=== PATIENT | female | born 1935 | race Caucasian/White ===

== ENCOUNTER 2020-10-02 08:47 | Inpatient (IN) | payer BC ==
[~2020-10-02] VITALS: Ht 154.9 cm; Wt 62.3 kg
[2020-10-02 09:36] LABS: Basophils # (auto) 0 10 ^3/uL (0-0.2); Basophils % (auto) 0.5 % (0.0-2.0); Eosinophils # (auto) 0.1 10 ^3/uL (0-0.8); Eosinophils % (auto) 0.8 % (0.0-7.0); Hematocrit 43.2 % (36.0-46.0); Hemoglobin 14.9 g/dL (12.2-16.2); Lymphocytes # (auto) 1.1 10 ^3/uL (0.4-5.4); Lymphocytes % (auto) 12.6 % (10.0-50.0); Mean Corpuscular Hgb Conc. 34.5 g/dL (32.0-36.0); Mean Corpuscular Volume 98.5 fL (80.0-100.0); Monocytes # (auto) 0.5 10 ^3/uL (0-1.3); Monocytes % (auto) 5.5 % (0.0-12.0); Neutrophils # (auto) 7.3 10 ^3/uL (1.6-8.6); Neutrophils % (auto) 80.6 % (37.0-80.0); Red Blood Cells 4.38 10^6/uL (4.0-5.20); Red Cell Distribution Width 12.6 % (11.8-14.3); White Blood Cell 9.1 10^3/uL (4.4-10.8)
[2020-10-02 09:55] LABS: Albumin 3.7 g/dL (3.4-5.0); Anion Gap 8 (5-15); Blood Urea Nitrogen 14 mg/dL (7-18); Calcium 8.6 mg/dL (8.5-10.1); Carbon Dioxide 24 mmol/L (21-32); Chloride 106 mmol/L (98-107); Glucose 194 mg/dL (74-106); Potassium 3.6 mmol/L (3.5-5.1); Sodium 138 mmol/L (136-145)
[2020-10-02 10:01] LABS: Alanine Aminotransferase 17 U/L (13-56); Alkaline Phosphatase 58 U/L (45-117); Aspartate Aminotransferase 14 U/L (15-37); BUN/Creatinine Ratio 23.3; Bilirubin, Total 0.7 mg/dL (0.2-1.0); GFR African American 122 mL/min; GFR Non-African American 101 mL/min
[2020-10-02 14:34] LABS: Urine Bacteria FEW /hpf (None Seen); Urine Blood Negative /uL (Negative); Urine Specific Gravity 1.015 (1.001-1.035); Urine WBC 12 /hpf (0 - 5)
[2020-10-02] MEDS ORDERED: ONDANSETRON HCL 4 MG/2 ML VIAL IV PRN (14:45)
[2020-10-02] MEDS ORDERED: NITROGLYCERIN 0.4 MG SL TAB SL PRN (14:45)
[2020-10-02] MEDS ORDERED: MORPHINE SULFATE INJECTION 2 MG/ML SYRG IV PRN (14:45)
[2020-10-02] MEDS ORDERED: cloNIDine HCL 0.1 MG TAB PO PRN (14:45)
[2020-10-02] MEDS ORDERED: DEXTROSE (50%) 50ML SYRG IV PRN (14:45)
[2020-10-02] MEDS ORDERED: SODIUM CHLORIDE 0.9% 1,000 ML IV ONE (14:45)
[2020-10-02] MEDS: InsuLIN REG 1unit/0.01ml Soln (100units/ml) SC SCH ×3 (17:00→21:59)
[2020-10-02] MEDS: ACCU-CHEK COMFORT CURVE STRIP VI SCH ×2 (17:13→21:58)
[2020-10-02] MEDS ORDERED: cefTRIAXone 1GM/50ML D5W 50 ML IV ONE (17:30)
[2020-10-02 18:46] VITALS: BP 140/83
[2020-10-02] MEDS ORDERED: GLIP5TAB12 PO (19:16)
[2020-10-02] MEDS ORDERED: CLOP75TA28 PO (19:16)
[2020-10-02] MEDS ORDERED: CARV3.1240 PO (19:16)
[2020-10-02] MEDS ORDERED: SITA100T7 PO (19:16)
[2020-10-02] MEDS ORDERED: SIMV-8 PO (19:16)
[2020-10-02] MEDS ORDERED: FURO20TA3 PO (19:16)
[2020-10-02] MEDS ORDERED: LOSA25TA38 PO (19:16)
[2020-10-02 20:00] VITALS: BP 115/61
[2020-10-02 22:00] VITALS: BP 115/61
[2020-10-03] MEDS: ACETAMINOPHEN 325 MG TAB PO PRN ×2 (02:04→14:35)
[2020-10-03 05:00] VITALS: BP 141/58
[2020-10-03] MEDS: ACCU-CHEK COMFORT CURVE STRIP VI SCH ×4 (06:06→22:34)
[2020-10-03] MEDS: InsuLIN REG 1unit/0.01ml Soln (100units/ml) SC SCH ×4 (06:06→22:00)
[2020-10-03 08:00] VITALS: BP 139/83
[2020-10-03 09:00] VITALS: BP 139/83
[2020-10-03] MEDS ORDERED: CLOPIDOGREL BISULFATE 75 MG TAB PO ONE (10:45)
[2020-10-03] MEDS ORDERED: LOSARTAN POTASSIUM 25 MG TAB PO ONE (10:45)
[2020-10-03] MEDS ORDERED: FUROSEMIDE 20 MG TAB PO ONE (10:45)
[2020-10-03] MEDS ORDERED: MECLIZINE HCL 25 MG TAB PO ONE (10:45)
[2020-10-03] MEDS ORDERED: glipiZIDE 5 MG TAB PO ONE (10:45)
[2020-10-03] MEDS: ASPirin-EC 81 mg tab PO SCH (11:15)
[2020-10-03] MEDS: cefTRIAXone 1GM/50ML D5W 50 ML IV SCH (11:15)
[2020-10-03 13:00] VITALS: BP 144/85
[2020-10-03 17:00] VITALS: BP 158/83
[2020-10-03] MEDS: ZOCOR 20 MG PO SCH ×2 (18:00→18:07)
[2020-10-03] MEDS ORDERED: LORazepam 2MG/ML-1ML VIAL IV PRN (18:00)
[2020-10-03 22:00] VITALS: BP 144/70
[2020-10-03] MEDS: glipiZIDE 5 MG TAB PO SCH (22:33)
[2020-10-03] MEDS: CARVEDILOL 3.125 MG TAB PO SCH (22:33)
[2020-10-03] MEDS: MECLIZINE HCL 25 MG TAB PO SCH (22:33)
[2020-10-04 05:00] VITALS: BP 142/75
[2020-10-04] MEDS: ACCU-CHEK COMFORT CURVE STRIP VI SCH ×3 (06:11→17:00)
[2020-10-04] MEDS: InsuLIN REG 1unit/0.01ml Soln (100units/ml) SC SCH ×3 (06:11→17:00)
[2020-10-04 08:00] VITALS: BP 154/72
[2020-10-04 08:47] VITALS: BP 154/72
[2020-10-04] MEDS: cefTRIAXone 1GM/50ML D5W 50 ML IV SCH (09:00)
[2020-10-04] MEDS: glipiZIDE 5 MG TAB PO SCH (09:46)
[2020-10-04] MEDS: MECLIZINE HCL 25 MG TAB PO SCH (09:47)
[2020-10-04] MEDS: CARVEDILOL 3.125 MG TAB PO SCH (09:47)
[2020-10-04] MEDS: ASPirin-EC 81 mg tab PO SCH (09:49)
[2020-10-04] MEDS ORDERED: LOSARTAN POTASSIUM 25 MG TAB PO SCH (10:00)
[2020-10-04] MEDS ORDERED: FUROSEMIDE 20 MG TAB PO SCH (10:00)
[2020-10-04] MEDS ORDERED: CLOPIDOGREL BISULFATE 75 MG TAB PO SCH (10:00)
[2020-10-04] MEDS ORDERED: CIPR-173 PO (11:48)
[2020-10-04] MEDS ORDERED: MECL25TA18 PO (11:48)
[2020-10-04 14:10] VITALS: BP 140/73
[2020-10-04 14:57] VITALS: BP 140/73
[2020-10-04 17:00] VITALS: BP 153/80
[2020-10-04] MEDS: ZOCOR 20 MG PO SCH (18:00)
== END 2020-10-04 20:53 | disposition home health service (06) | DRG 65 ==
LOC: ER 08:47 → TELE 14:43 → TELE-CENTR 17:42
PROVIDERS: ADMIT Hospitalist; ATTEND Hospitalist
DX: I63.81 Other cerebral infarction due to occlusion or stenosis of small artery (principal); N39.0 Urinary tract infection, site not specified; H81.10 Benign paroxysmal vertigo, unspecified ear; E11.9 Type 2 diabetes mellitus without complications; Z20.822 Contact with and (suspected) exposure to COVID-19; F17.200 Nicotine dependence, unspecified, uncomplicated; H91.90 Unspecified hearing loss, unspecified ear; I10 Essential (primary) hypertension; I25.10 Atherosclerotic heart disease of native coronary artery without angina pectoris; I25.2 Old myocardial infarction; Z82.49 Family history of ischemic heart disease and other diseases of the circulatory system; Z83.3 Family history of diabetes mellitus; Z95.5 Presence of coronary angioplasty implant and graft; W18.39XA Other fall on same level, initial encounter; Y93.89 Activity, other specified; Y92.098 Other place in other non-institutional residence as the place of occurrence of the external cause; Y99.8 Other external cause status
CPT/HCPCS: 36415; 70450; 70551; 71045; 80053; 81001; 82962; 84484; 85025; 87426; 93005; 93306; 95819; 96361; 96374; 99291; G0378; J0696; J1815

== ENCOUNTER 2023-03-30 00:19 | Inpatient (IN) | payer BC, MEDICAID ==
[~2023-03-30] VITALS: Ht 157.5 cm; Wt 57.4 kg
[~2023-03-30 00:19] MED LIST: CARV3.1240 PO; CIPR-173 PO; CLOP75TA28 PO; FURO20TA3 PO; GLIP5TAB12 PO; LOSA25TA15 PO; MECL1TAB32 PO; SIMV20TA20 PO; SITA100T7 PO
[2023-03-30 01:10] LABS: Basophils # (auto) 0.1 10 ^3/uL (0-0.2); Basophils % (auto) 0.7 % (0.0-2.0); Eosinophils # (auto) 0.1 10 ^3/uL (0-0.8); Eosinophils % (auto) 0.9 % (0.0-7.0); Hematocrit 42.6 % (36.0-46.0); Hemoglobin 14.5 g/dL (12.2-16.2); Lymphocytes % (auto) 11.6 % (10.0-50.0); Mean Corpuscular Hemoglobin 33.9 pg (28.0-32.0); Mean Corpuscular Volume 99.7 fL (80.0-100.0); Monocytes # (auto) 0.5 10 ^3/uL (0-1.3); Monocytes % (auto) 5.6 % (0.0-12.0); Neutrophils % (auto) 81.2 % (37.0-80.0); Red Blood Cells 4.27 10^6/uL (4.0-5.20); Red Cell Distribution Width 12.7 % (11.8-14.3); White Blood Cell 8.7 10^3/uL (4.4-10.8)
[2023-03-30 01:18] VITALS: PULSE 64; RESP 22; O2SAT 99
[2023-03-30 01:29] LABS: Alanine Aminotransferase 14 U/L (7-40); Albumin 4.5 g/dL (3.2-4.8); Alkaline Phosphatase 74 U/L (46-116); Anion Gap 8 (5-15); Aspartate Aminotransferase 21 U/L (13-40); BUN/Creatinine Ratio 14.3 (10.0-20.0); Blood Urea Nitrogen 10 mg/dL (9-23); Calcium 9.6 mg/dL (8.7-10.4); Carbon Dioxide 25 mmol/L (20-30); Chloride 105 mmol/L (98-107); Glucose 190 mg/dL (74-106); Potassium 3.8 mmol/L (3.5-5.1); Sodium 138 mmol/L (136-145)
[2023-03-30 01:30] LABS: Bilirubin, Total 0.9 mg/dL (0.2-1.0); Total Protein 7.1 g/dL (5.7-8.2)
[2023-03-30 03:51] LABS: Urine Bacteria MANY /hpf (None Seen); Urine Blood 1+ /uL (Negative); Urine Clarity CLOUDY (Clear); Urine Color Yellow (Yellow); Urine Protein, UAD Negative (Negative); Urine Specific Gravity 1.012 (1.001-1.035); Urine Urobilinogen Normal (Negative); Urine WBC 141 /hpf (0 - 5); Urine WBC Clumps PRESENT /hpf (None Seen)
[2023-03-30] MEDS ORDERED: ASPirin 81 mg TAB PO ONE (04:15)
[2023-03-30] MEDS ORDERED: cefTRIAXone 1GM/50ML D5W 50 ML IV SCH (04:15)
[2023-03-30] MEDS ORDERED: IOHEXOL 350 MG/ML 100ML IJ ONE (05:06)
[2023-03-30 05:31] LABS: INR 1.16 (0.9-1.15); Partial Thromboplastin Time 24.6 SEC (24.5-34.5); Prothrombin Time 12.1 sec (9.3-11.8)
[2023-03-30] MEDS ORDERED: DEXTROSE (50%) 50ML SYRG IV PRN (06:30)
[2023-03-30] MEDS ORDERED: DOCUSATE SOD 100 MG CAP PO PRN (06:30)
[2023-03-30] MEDS ORDERED: ACETAMINOPHEN 325 MG TAB PO PRN (06:30)
[2023-03-30] MEDS ORDERED: ONDANSETRON HCL 4 MG/2 ML VIAL IV PRN (06:30)
[2023-03-30] MEDS ORDERED: NITROGLYCERIN 0.4 MG SL TAB SL PRN (06:30)
[2023-03-30] MEDS ORDERED: MORPHINE SULFATE INJ 2 MG/ml SYRG IV PRN (06:30)
[2023-03-30] MEDS: InsuLIN REG 1unit/0.01ml Soln (100units/ml) SC SCH ×4 (07:00→22:26)
[2023-03-30] MEDS: ACCU-CHEK COMFORT CURVE STRIP VI SCH ×4 (08:16→22:17)
[2023-03-30] MEDS: ASPirin 81 mg TAB PO SCH (10:08)
[2023-03-30] MEDS: CLOPIDOGREL BISULFATE 75 MG TAB PO SCH (10:08)
[2023-03-30] MEDS: ATORVASTATIN 20 MG TAB PO SCH (10:08)
[2023-03-30] MEDS: MECLIZINE HCL 25 MG TAB PO PRN (13:52)
[2023-03-30 19:48] VITALS: PULSE 88; RESP 23; O2SAT 98
[2023-03-30] MEDS: PANTOPRAZOLE 40 MG TAB PO SCH (19:58)
[2023-03-30 21:24] VITALS: BP 112/61; PULSE 76; RESP 18; TEMP 97.9; O2SAT 98
[2023-03-30] MEDS: CARVEDILOL 3.125 MG TAB PO SCH (22:30)
[2023-03-30 23:41] VITALS: PULSE 70
[2023-03-31] VITALS (7 sets, daily range): BP systolic 118–133; BP diastolic 50–74; PULSE 70–85; RESP 14–19; TEMP 97.8–98.7; O2SAT 97–100
[2023-03-31] MEDS: ACCU-CHEK COMFORT CURVE STRIP VI SCH ×4 (06:17→21:50)
[2023-03-31] MEDS: InsuLIN REG 1unit/0.01ml Soln (100units/ml) SC SCH ×4 (06:20→21:42)
[2023-03-31 06:33] LABS: Basophils # (auto) 0 10 ^3/uL (0-0.2)
[2023-03-31 07:18] LABS: Basophils % (auto) 0.6 % (0.0-2.0); Eosinophils # (auto) 0.1 10 ^3/uL (0-0.8); Eosinophils % (auto) 1.5 % (0.0-7.0); Hematocrit 41.2 % (36.0-46.0); Hemoglobin 13.3 g/dL (12.2-16.2); Lymphocytes # (auto) 2.1 10 ^3/uL (0.4-5.4); Lymphocytes % (auto) 38.4 % (10.0-50.0); Mean Corpuscular Hemoglobin 33.7 pg (28.0-32.0); Mean Corpuscular Hgb Conc. 32.3 g/dL (32.0-36.0); Mean Corpuscular Volume 104.5 fL (80.0-100.0); Monocytes # (auto) 0.6 10 ^3/uL (0-1.3); Neutrophils # (auto) 2.6 10 ^3/uL (1.6-8.6); Neutrophils % (auto) 47.5 % (37.0-80.0); Nucleated Red Blood Cells % 0.3 %; Red Blood Cells 3.94 10^6/uL (4.0-5.20); Red Cell Distribution Width 13.4 % (11.8-14.3); White Blood Cell 5.4 10^3/uL (4.4-10.8)
[2023-03-31 07:59] LABS: Chloride 105 mmol/L (98-107); Potassium 3.6 mmol/L (3.5-5.1); Sodium 140 mmol/L (136-145)
[2023-03-31 08:00] LABS: Calcium 9.1 mg/dL (8.5-10.1)
[2023-03-31 08:05] LABS: BUN/Creatinine Ratio 17.1 (10.0-20.0); Blood Urea Nitrogen 13 mg/dL (9-23); Glucose 100 mg/dL (74-106); Triglycerides 122 mg/dL (< 150)
[2023-03-31 08:06] LABS: LDL Cholesterol 51 mg/dL (< 100)
[2023-03-31 08:07] LABS: Cholesterol 103 mg/dL (< 200); HDL Cholesterol 34 mg/dL (40-59)
[2023-03-31] MEDS: ASPirin 81 mg TAB PO SCH (08:41)
[2023-03-31] MEDS: ATORVASTATIN 20 MG TAB PO SCH (08:41)
[2023-03-31] MEDS: PANTOPRAZOLE 40 MG TAB PO SCH (08:41)
[2023-03-31] MEDS: MECLIZINE HCL 25 MG TAB PO PRN (08:41)
[2023-03-31] MEDS: CLOPIDOGREL BISULFATE 75 MG TAB PO SCH (08:41)
[2023-03-31] MEDS: CARVEDILOL 3.125 MG TAB PO SCH ×2 (08:55→21:43)
[2023-03-31] MEDS: cefTRIAXone 1GM/50ML D5W 50 ML IV SCH (09:25)
[2023-03-31 09:49] LABS: Anion Gap 9 (5-15); Carbon Dioxide 26 mmol/L (20-30)
[2023-03-31] MEDS: MECLIZINE HCL 25 MG TAB PO SCH ×2 (12:47→21:44)
[2023-04-01] VITALS (7 sets, daily range): BP systolic 101–124; BP diastolic 51–73; PULSE 64–88; RESP 15–18; TEMP 97.4–99.4; O2SAT 96–100
[2023-04-01] MEDS: InsuLIN REG 1unit/0.01ml Soln (100units/ml) SC SCH ×4 (06:03→21:54)
[2023-04-01] MEDS: MECLIZINE HCL 25 MG TAB PO SCH ×3 (06:08→21:53)
[2023-04-01] MEDS: ACCU-CHEK COMFORT CURVE STRIP VI SCH ×4 (06:41→22:00)
[2023-04-01] MEDS: cefTRIAXone 1GM/50ML D5W 50 ML IV SCH (09:59)
[2023-04-01] MEDS: ATORVASTATIN 20 MG TAB PO SCH (10:00)
[2023-04-01] MEDS: CARVEDILOL 3.125 MG TAB PO SCH ×2 (10:00→21:53)
[2023-04-01] MEDS: PANTOPRAZOLE 40 MG TAB PO SCH (10:01)
[2023-04-01] MEDS: ENOXAPARIN SOD 40 MG/0.4 ML SYRINGE SC SCH (10:01)
[2023-04-01] MEDS: CLOPIDOGREL BISULFATE 75 MG TAB PO SCH (10:01)
[2023-04-02] VITALS (7 sets, daily range): BP systolic 103–139; BP diastolic 53–70; PULSE 60–80; RESP 15–20; TEMP 97–98; O2SAT 94–98
[2023-04-02 04:55] LABS: Basophils # (auto) 0 10 ^3/uL (0-0.2); Basophils % (auto) 0.6 % (0.0-2.0); Eosinophils # (auto) 0.1 10 ^3/uL (0-0.8); Hematocrit 39.1 % (36.0-46.0); Hemoglobin 13.2 g/dL (12.2-16.2); Lymphocytes # (auto) 1.3 10 ^3/uL (0.4-5.4); Lymphocytes % (auto) 27.6 % (10.0-50.0); Mean Corpuscular Hemoglobin 33.5 pg (28.0-32.0); Mean Corpuscular Hgb Conc. 33.7 g/dL (32.0-36.0); Mean Corpuscular Volume 99.6 fL (80.0-100.0); Monocytes # (auto) 0.5 10 ^3/uL (0-1.3); Monocytes % (auto) 11.4 % (0.0-12.0); Neutrophils # (auto) 2.8 10 ^3/uL (1.6-8.6); Neutrophils % (auto) 58.4 % (37.0-80.0); Red Blood Cells 3.93 10^6/uL (4.0-5.20); Red Cell Distribution Width 12.5 % (11.8-14.3); White Blood Cell 4.8 10^3/uL (4.4-10.8)
[2023-04-02 05:01] LABS: Chloride 105 mmol/L (98-107); Potassium 3.9 mmol/L (3.5-5.1); Sodium 138 mmol/L (136-145)
[2023-04-02 05:02] LABS: Anion Gap 6 (5-15); Carbon Dioxide 27 mmol/L (20-30)
[2023-04-02 05:07] LABS: BUN/Creatinine Ratio 18.1 (10.0-20.0); Blood Urea Nitrogen 13 mg/dL (9-23); Glucose 116 mg/dL (74-106)
[2023-04-02] MEDS: MECLIZINE HCL 25 MG TAB PO SCH ×3 (05:59→22:16)
[2023-04-02] MEDS: ACCU-CHEK COMFORT CURVE STRIP VI SCH ×4 (06:39→22:00)
[2023-04-02] MEDS: InsuLIN REG 1unit/0.01ml Soln (100units/ml) SC SCH ×4 (06:39→22:12)
[2023-04-02] MEDS: cefTRIAXone 1GM/50ML D5W 50 ML IV SCH (09:55)
[2023-04-02] MEDS: CARVEDILOL 3.125 MG TAB PO SCH ×2 (09:59→22:00)
[2023-04-02] MEDS: ENOXAPARIN SOD 40 MG/0.4 ML SYRINGE SC SCH (09:59)
[2023-04-02] MEDS: CLOPIDOGREL BISULFATE 75 MG TAB PO SCH (09:59)
[2023-04-02] MEDS: ATORVASTATIN 20 MG TAB PO SCH (09:59)
[2023-04-02] MEDS: PANTOPRAZOLE 40 MG TAB PO SCH (09:59)
[2023-04-03 05:00] VITALS: BP_SYST 0; BP_SYST 140; BP_DIAS 68; PULSE 98; RESP 17; TEMP 98.2; O2SAT 90
[2023-04-03] MEDS: MECLIZINE HCL 25 MG TAB PO SCH ×2 (05:51→12:55)
[2023-04-03] MEDS: InsuLIN REG 1unit/0.01ml Soln (100units/ml) SC SCH ×3 (06:02→17:00)
[2023-04-03] MEDS: ACCU-CHEK COMFORT CURVE STRIP VI SCH ×3 (06:29→17:59)
[2023-04-03 08:00] VITALS: PULSE 75; PULSE 78; RESP 16; O2SAT 95
[2023-04-03 08:05] VITALS: BP 134/71; PULSE 103; RESP 20; TEMP 98.3; O2SAT 95
[2023-04-03] MEDS: cefTRIAXone 1GM/50ML D5W 50 ML IV SCH (10:24)
[2023-04-03] MEDS: CLOPIDOGREL BISULFATE 75 MG TAB PO SCH (10:25)
[2023-04-03] MEDS: CARVEDILOL 3.125 MG TAB PO SCH (10:25)
[2023-04-03] MEDS: ATORVASTATIN 20 MG TAB PO SCH (10:26)
[2023-04-03] MEDS: ENOXAPARIN SOD 40 MG/0.4 ML SYRINGE SC SCH (10:26)
[2023-04-03 12:10] VITALS: BP 153/72; PULSE 74; RESP 18; TEMP 98.1; O2SAT 96
[2023-04-03] MEDS ORDERED: MECL1TAB32 PO (14:57)
[2023-04-03] MEDS ORDERED: CEPH500C PO (14:57)
[2023-04-03 15:10] VITALS: BP 153/72; PULSE 92; TEMP 36.7
[2023-04-03 16:00] VITALS: BP 129/60; PULSE 83; RESP 19; TEMP 98.7; O2SAT 96
== END 2023-04-03 18:43 | disposition home health service (06) | DRG 149 ==
LOC: ER 00:19 → EDBD 00:19 → TELE 06:39 → TELE-WESTW 21:04
PROVIDERS: ADMIT Nurse Practitioner Family; ATTEND Hospitalist
DX: H81.10 Benign paroxysmal vertigo, unspecified ear (principal); N39.0 Urinary tract infection, site not specified; E11.9 Type 2 diabetes mellitus without complications; I10 Essential (primary) hypertension; E78.5 Hyperlipidemia, unspecified; I25.10 Atherosclerotic heart disease of native coronary artery without angina pectoris; R29.6 Repeated falls; Z86.73 Personal history of transient ischemic attack (TIA), and cerebral infarction without residual deficits; Z79.02 Long term (current) use of antithrombotics/antiplatelets
CPT/HCPCS: 36415; 70450; 70496; 70551; 71045; 80048; 80053; 80061; 81001; 82962; 83036; 83605; 83880; 84484; 85025; 85610; 85730; 87040; 87086; 93306; 97110; 97116; 97163; 97530; G0378; J0696; J1815